=== PATIENT | male | born 1955 | race Caucasian/White ===

== ENCOUNTER → 2018-10-05 | Outpatient (CLI) | payer BC, OTHER | END | disposition home or self-care (01) | LOC: PLD 14:55 → LAB SHORT 14:55 | DX: D22.72 Melanocytic nevi of left lower limb, including hip (principal) | CPT/HCPCS: 88305 ==

== ENCOUNTER → 2018-12-09 | Outpatient (CLI) | payer BC, OTHER | LOC: LAB SHORT 18:04 → LAB 18:04 | DX: L08.9 Local infection of the skin and subcutaneous tissue, unspecified (principal) | CPT/HCPCS: 87070; 87205 ==

== ENCOUNTER → 2019-01-04 | Outpatient (CLI) | payer BC, OTHER | END | disposition home or self-care (01) | LOC: LAB SHORT 15:37 → PLD 15:37 | DX: D22.72 Melanocytic nevi of left lower limb, including hip (principal) | CPT/HCPCS: 88305 ==

== ENCOUNTER 2023-01-09 02:51 | Day surgery (SDC) | payer MEDICARE, BC ==
[2023-01-09 07:51] VITALS: BP 127/86
[2023-01-09] MEDS ORDERED: FELODIPINE ER5 M2 PO (08:29)
[2023-01-09] MEDS ORDERED: CARV25 PO (08:29)
[2023-01-09] MEDS ORDERED: CHLO25B PO (08:29)
[2023-01-09] MEDS ORDERED: LOSARTAN POTAS100 M1 PO (08:30)
[2023-01-09] MEDS ORDERED: K-Dur20 MEQ PO (08:31)
[2023-01-09] MEDS ORDERED: EUTHYROX125 MCG PO (08:31)
[2023-01-09] MEDS ORDERED: OMEP20ER PO (08:31)
--- NOTE | 2023-01-09 12:05 | NUR ---
LABS DRAWN PER MD ORDER AFTER 2 LITERS OF NS GIVEN.
== END 2023-01-09 12:07 | disposition home or self-care (01) ==
LOC: ATC 02:51
DX: I15.9 Secondary hypertension, unspecified (principal); Z88.8 Allergy status to other drugs, medicaments and biological substances; Z79.899 Other long term (current) drug therapy; Z79.890 Hormone replacement therapy
CPT/HCPCS: 96360; 96361; J7030

== ENCOUNTER → 2024-01-23 | Outpatient (CLI) | payer MEDICARE, BC ==
[~2024-01-23] MED LIST: CARV25 PO; CHLO25B PO; EUTHYROX125 MCG PO; FELODIPINE ER5 M2 PO; K-Dur20 MEQ PO; LOSARTAN POTAS100 M1 PO; OMEP20ER PO
[2024-01-28 10:27] LABS: Stool Occult Blood Guaiac 1 Neg (Neg)
[2024-01-28 10:28] LABS: Stool Occult Blood Guaiac 2 Neg (Neg); Stool Occult Blood Guaiac 3 Neg (Neg)
== END ==
LOC: LAB EV 14:00 → LAB SHORT 14:00
PROVIDERS: Internal Medicine
DX: D64.9 Anemia, unspecified (principal)
CPT/HCPCS: 82272

== ENCOUNTER 2024-04-23 17:31 | Emergency (ER) | payer MEDICARE, BC ==
[~2024-04-23] VITALS: Ht 180.3 cm; Wt 86.2 kg
[2024-04-23 17:36] VITALS: BP 160/92
[2024-04-23] MEDS ORDERED: CEPH500 PO (19:22)
== END 2024-04-23 19:30 | disposition home or self-care (01) ==
LOC: ER 17:31
DX: S51.811A Laceration without foreign body of right forearm, initial encounter (principal); W18.30XA Fall on same level, unspecified, initial encounter; Z88.2 Allergy status to sulfonamides; Z79.899 Other long term (current) drug therapy; E03.9 Hypothyroidism, unspecified; I10 Essential (primary) hypertension; K21.9 Gastro-esophageal reflux disease without esophagitis
CPT/HCPCS: 73130